=== PATIENT | male | born 1965 | race Caucasian/White ===

== ENCOUNTER 2020-10-14 09:15 | Inpatient (IN) | payer OTHER ==
[~2020-10-14] VITALS: Ht 188 cm; Wt 125.0 kg
--- NOTE | 2020-10-14 09:28 | NUR ---
patient to ct.
[2020-10-14 09:43] LABS: BASOPHILS # (AUTO) 0.1 X10'3 (0-0.2); BASOPHILS % (AUTO) 1.3 % (0-1); EOSINOPHILS # (AUTO) 0.1 X10'3 (0-0.9); EOSINOPHILS % (AUTO) 0.6 % (0-6); HEMATOCRIT 46.7 % (42.0-52.0); HEMOGLOBIN 15.9 g/dl (14.0-17.9); LYMPHOCYTES # (AUTO) 2.1 X10'3 (1.1-4.8); LYMPHOCYTES % (AUTO) 23.9 % (21-51); MEAN CORPUSCULAR HEMOGLOBIN 31.6 PG (27.0-31.0); MEAN CORPUSCULAR HGB CONC 34.1 g/dL (33.0-36.5); MEAN CORPUSCULAR VOLUME 92.9 FL (78-98); MEAN PLATELET VOLUME 10.9 FL (7.4-10.4); MONOCYTES # (AUTO) 0.5 X10'3 (0-0.9); MONOCYTES % (AUTO) 6.3 % (2-12); NEUTROPHILS # (AUTO) 5.9 X10'3 (1.8-7.7); NEUTROPHILS % (AUTO) 67.9 % (42-75); PLATELET COUNT 197 X10'3 (140-440); RED BLOOD COUNT 5.02 X10'6 (4.70-6.10); RED CELL DISTRIBUTION WIDTH 12.8 % (11.5-14.5); WHITE BLOOD COUNT 8.6 X10'3 (4.5-11.0)
[2020-10-14 09:53] LABS: PARTIAL THROMBOPLASTIN TIME 25 SECONDS (22-32)
[2020-10-14 09:56] LABS: ALANINE AMINOTRANSFERASE 24 U/L (12-78); ALBUMIN 4.1 G/DL (3.4-5.0); ALKALINE PHOSPHATASE 78 IU/L (46-116); ANION GAP 11 (8-16); ASPARTATE AMINO TRANSFERASE 23 U/L (10-37); BILIRUBIN,TOTAL 0.8 MG/DL (0.1-1.0); BLOOD UREA NITROGEN 17 MG/DL (7-18); BUN/CREATININE RATIO 14.7 (5.4-32.0); CALCIUM 8.7 MG/DL (8.5-10.1); CHLORIDE 98 MMOL/L (99-107); CREATININE 1.16 MG/DL (0.60-1.10); GLUCOSE 326 MG/DL (70-104); POTASSIUM 3.8 MMOL/L (3.5-5.1); SODIUM 135 MMOL/L (135-145); TOTAL CARBON DIOXIDE 26.1 MMOL/L (24-32); TOTAL PROTEIN 8.1 G/DL (6.4-8.2); eGFR 66 ML/MIN
[2020-10-14 10:00] LABS: TROPONIN I < 0.04 NG/ML (0.0-0.05)
[2020-10-14] MEDS ORDERED: iohexol 350MG/ML 100ml bottle IV ONE (10:12)
--- NOTE | 2020-10-14 10:22 | NUR ---
pt to CT
[2020-10-14] MEDS ORDERED: aspirin 325mg tablet PO ONE (10:50)
[2020-10-14] MEDS ORDERED: NO HOME MEDS (12:27)
[2020-10-14] MEDS ORDERED: potassium CL 10mEq/100ml bag 100 ML IV PRN ×2 (12:55)
[2020-10-14] MEDS ORDERED: HYDROcodone/acetaminophen 5mg/325mg tablet PO PRN (12:55)
[2020-10-14] MEDS ORDERED: diphenhydrAMINE 25mg capsule PO PRN (12:55)
[2020-10-14] MEDS ORDERED: bisacodyl 10mg suppository rectal RC PRN (12:55)
[2020-10-14] MEDS ORDERED: magnesium Cl slow-release 64mg tablet PO PRN (12:55)
[2020-10-14] MEDS ORDERED: morphine 2 MG/ML inj. syringe IV PRN ×2 (12:55)
[2020-10-14] MEDS ORDERED: magnesium hydroxide 30ml (MOM) UD suspension PO PRN (12:55)
[2020-10-14] MEDS ORDERED: HYDROcodone/acetaminophen 10/325mg tab PO PRN (12:55)
[2020-10-14] MEDS ORDERED: magnesium 4gm in 100ml NS 100 ML IV PRN (12:55)
[2020-10-14] MEDS ORDERED: potassium Cl 20 mEq SR tablet PO PRN ×2 (12:55)
[2020-10-14] MEDS ORDERED: magnesium 2GM in 50ml NS 50 ML IV PRN (12:55)
[2020-10-14] MEDS ORDERED: ondansetron/PF 4mg/2ml inj IV PRN (12:55)
[2020-10-14] MEDS ORDERED: mag hydrox/Alum hydrox/simeth 30ml oral suspension PO PRN (12:55)
[2020-10-14] MEDS ORDERED: acetaminophen 650mg rectal suppository RC PRN (12:55)
[2020-10-14] MEDS ORDERED: acetaminophen 325mg tablet PO PRN ×2 (12:55)
[2020-10-14 13:00] VITALS: BP 211/111
--- NOTE | 2020-10-14 13:27 | NUR ---
architectural technician at bedside.
[2020-10-14 14:00] LABS: HEMOGLOBIN A1C 9.9 % (4.5-6.2)
[2020-10-14] MEDS: normal saline 1000ml 1,000 ML IV SCH (14:07)
[2020-10-14 15:02] LABS: CHOL/HDL RATIO 3.9 (0.00-4.99); CHOLESTEROL 238 MG/DL (0-200); HDL CHOLESTEROL 61 MG/DL (35-60); LDL CHOLESTEROL 145 MG/DL (50-100); TRIGLYCERIDES 185 MG/DL (20-135)
--- NOTE | 2020-10-14 17:49 | NUR ---
PAGER ID: [phone] MESSAGE: [id number] Pooja Juan- A1C is 9.9 Blood sugar 236, can we order DM portocol? Niyah [id number]
[2020-10-14] MEDS ORDERED: dextrose ORAL solution 15 GM/59 ML bottle PO PRN ×2 (17:50)
[2020-10-14] MEDS ORDERED: glucagon, human recombinant 1mg kit SUBCUT PRN (17:50)
[2020-10-14] MEDS ORDERED: dextrose 50%-water 50ml dispensing syringe IV PRN ×2 (17:50)
[2020-10-14] MEDS ORDERED: MESSAGE TO PHARMACY PO ONE (17:50)
[2020-10-14 18:00] VITALS: BP 209/114
--- NOTE | 2020-10-14 18:35 | NUR ---
Problems reprioritized. Patient report given, questions answered & plan of care reviewed with Flor MAN.
--- NOTE | 2020-10-14 18:39 | NUR ---
Patient in room [facility] 4012. I have received report from Niyah MAN and had the opportunity to ask questions and assume patient care.
[2020-10-14] MEDS: K and/or MAG REPLACEMENT MC SCH (19:35)
[2020-10-14] MEDS: heparin, porcine 5000 units/ml vial SQ SCH (19:36)
[2020-10-14] MEDS: insulin Lispro (HumaLOG) vial - multi-dose SQ SCH (19:38)
[2020-10-14 20:00] VITALS: BP_SYST 172; BP_SYST 174; BP_SYST 183; BP_DIAS 103; BP_DIAS 92; BP_DIAS 95
[2020-10-14] MEDS ORDERED: atorvastatin 20mg tablet PO ONE (20:00)
[2020-10-14] MEDS ORDERED: atorvastatin 10mg tablet PO ONE (20:00)
[2020-10-14 20:24] LABS: CLARITY,URINE CLEAR (Clear); COLOR,URINE YELLOW (Yellow); GLUCOSE, URINE >=1000 mg/dl (Neg); KETONES,URINE TRACE mg/dl (Neg); LEUKOCYTE ESTERASE ,URINE NEGATIVE (Neg); NITRITES, URINE NEGATIVE (Neg); OCCULT BLOOD,URINE TRACE-INTACT (Neg); PROTEIN,URINE 100 mg/dl (Neg); UROBILINOGEN,URINE 0.2 E.U/dL (0.2-1.0)
[2020-10-14 20:29] LABS: UA COLLECTION TYPE CLN CATCH MIDSTREAM
[2020-10-14 20:30] LABS: BACTERIA,URINE NONE SEEN /HPF (Neg); MUCUS STRANDS NONE SEEN /LPF (Neg); RBC,URINE 0-2 /HPF (0-2); SQUAMOUS EPITHELIAL CELL,UR FEW /LPF (FEW); WBC,URINE 0-4 /HPF (0-4)
[2020-10-14] MEDS: insulin glargine (Lantus) pen - multi-dose SQ SCH (21:43)
[2020-10-14 22:00] VITALS: BP 174/92
[2020-10-15] VITALS (9 sets, daily range): BP systolic 143–171; BP diastolic 85–99
[2020-10-15] MEDS: normal saline 1000ml 1,000 ML IV SCH ×2 (02:15→15:35)
[2020-10-15 06:29] LABS: BASOPHILS # (AUTO) 0.1 X10'3 (0-0.2); BASOPHILS % (AUTO) 1.1 % (0-1); EOSINOPHILS # (AUTO) 0.1 X10'3 (0-0.9); EOSINOPHILS % (AUTO) 1.7 % (0-6); HEMATOCRIT 41.3 % (42.0-52.0); HEMOGLOBIN 13.9 g/dl (14.0-17.9); LYMPHOCYTES # (AUTO) 2.3 X10'3 (1.1-4.8); LYMPHOCYTES % (AUTO) 35.6 % (21-51); MEAN CORPUSCULAR HEMOGLOBIN 31.3 PG (27.0-31.0); MEAN CORPUSCULAR HGB CONC 33.6 g/dL (33.0-36.5); MEAN CORPUSCULAR VOLUME 93.1 FL (78-98); MEAN PLATELET VOLUME 10.4 FL (7.4-10.4); MONOCYTES # (AUTO) 0.4 X10'3 (0-0.9); MONOCYTES % (AUTO) 6.4 % (2-12); NEUTROPHILS # (AUTO) 3.6 X10'3 (1.8-7.7); NEUTROPHILS % (AUTO) 55.2 % (42-75); PLATELET COUNT 160 X10'3 (140-440); RED BLOOD COUNT 4.44 X10'6 (4.70-6.10); RED CELL DISTRIBUTION WIDTH 12.9 % (11.5-14.5); WHITE BLOOD COUNT 6.6 X10'3 (4.5-11.0)
--- NOTE | 2020-10-15 06:36 | NUR ---
Problems reprioritized. Patient report given, questions answered & plan of care reviewed with Niyah MAN.
[2020-10-15 06:54] LABS: ALANINE AMINOTRANSFERASE 23 U/L (12-78); ALBUMIN 3.2 G/DL (3.4-5.0); ALKALINE PHOSPHATASE 60 IU/L (46-116); ANION GAP 9 (8-16); ASPARTATE AMINO TRANSFERASE 13 U/L (10-37); BILIRUBIN,TOTAL 0.9 MG/DL (0.1-1.0); BLOOD UREA NITROGEN 14 MG/DL (7-18); BUN/CREATININE RATIO 15.4 (5.4-32.0); CALCIUM 8.5 MG/DL (8.5-10.1); CHLORIDE 105 MMOL/L (99-107); CHOL/HDL RATIO 4.1 (0.00-4.99); CHOLESTEROL 189 MG/DL (0-200); CREATININE 0.91 MG/DL (0.60-1.10); GLUCOSE 216 MG/DL (70-104); HDL CHOLESTEROL 46 MG/DL (35-60); LDL CHOLESTEROL 117 MG/DL (50-100); MAGNESIUM 1.8 MG/DL (1.5-2.4); PHOSPHORUS 3.8 MG/DL (2.3-4.5); POTASSIUM 3.6 MMOL/L (3.5-5.1); SODIUM 141 MMOL/L (135-145); TOTAL CARBON DIOXIDE 26.9 MMOL/L (24-32); TOTAL PROTEIN 6.3 G/DL (6.4-8.2); TRIGLYCERIDES 208 MG/DL (20-135); eGFR 87 ML/MIN
[2020-10-15] MEDS: heparin, porcine 5000 units/ml vial SQ SCH ×2 (07:35→19:09)
[2020-10-15] MEDS: aspirin 81mg tablet.DR PO SCH (07:35)
[2020-10-15] MEDS: K and/or MAG REPLACEMENT MC SCH ×2 (07:39→20:00)
[2020-10-15] MEDS ORDERED: atorvastatin 10mg tablet PO SCH ×2 (08:00)
[2020-10-15] MEDS: insulin Lispro (HumaLOG) vial - multi-dose SQ SCH ×3 (08:49→19:06)
[2020-10-15] MEDS ORDERED: FLU VACC QS2020-21(6MOS UP)/PF 60 MCG/0.5 ML SYRINGE IMVAC ONE (10:00)
--- NOTE | 2020-10-15 14:47 | NUR ---
DM consult: Pt with T2DM, current A1c is 9.9%. Per H&P pt not on any DM medications though needs to be on oral hypoglycemic agents and will need diabetic supplies and follow up with MDs at discharge. Pt seen at bedside for written and verbal DM education. Pt states he used to see an MD for DM management however they moved and he never got a new physician. Pt states because of that once his DM med rx ran out he never got a refill. Pt states it has been years since he last had a DM rx and he stopped checking his BG levels at that time though reports he still has a glucometer. Pt denies following any special diet at home and reports he consumes roughly 3-4 meals a day and mostly eats fast food. Pt unsure of consequences that can occur with poorly controlled diabetes, RD educated pt. RD assisted pt in coming up with small achievable goals for diet modification to better manage diabetes. Pt states his A1c was previously around 12% roughly five years ago and was able to get it down around 5% with medication assistance. RD encouraged pt to f/u with an MD following discharge and to d/w inpatient RN and MD regarding medication rx upon discharge. All of patient's questions were answered at this time. RD contact information provided. Pt endorses a good appetite and states he isn't getting full from meals. Pt agrees to double protein TID for satiety, d/w dietary. Pt denies food allergies or difficulty chewing/swallowing. Pt denies constipation/diarrhea though reports LBM was 11/13 in the morning. Pt denies nutrition intervention at this time. Will continue to follow. Addendum: 10/15/20 at [address] Amended: Links added.
--- NOTE | 2020-10-15 18:33 | NUR ---
Problems reprioritized. Patient report given, questions answered & plan of care reviewed with Ting MAN.
[2020-10-15] MEDS: insulin glargine (Lantus) pen - multi-dose SQ SCH (20:58)
[2020-10-15] MEDS ORDERED: atorvastatin 20mg tablet PO SCH (21:00)
[2020-10-16] MEDS: normal saline 1000ml 1,000 ML IV SCH (04:55)
[2020-10-16 06:00] VITALS: BP 161/101
[2020-10-16 06:12] LABS: ALANINE AMINOTRANSFERASE 24 U/L (12-78); ALBUMIN 3.3 G/DL (3.4-5.0); ALKALINE PHOSPHATASE 63 IU/L (46-116); ANION GAP 8 (8-16); ASPARTATE AMINO TRANSFERASE 16 U/L (10-37); BILIRUBIN,TOTAL 0.8 MG/DL (0.1-1.0); BLOOD UREA NITROGEN 12 MG/DL (7-18); BUN/CREATININE RATIO 12.4 (5.4-32.0); CALCIUM 8.5 MG/DL (8.5-10.1); CHLORIDE 107 MMOL/L (99-107); CREATININE 0.97 MG/DL (0.60-1.10); GLUCOSE 161 MG/DL (70-104); MAGNESIUM 1.8 MG/DL (1.5-2.4); PHOSPHORUS 3.5 MG/DL (2.3-4.5); POTASSIUM 3.6 MMOL/L (3.5-5.1); SODIUM 143 MMOL/L (135-145); TOTAL CARBON DIOXIDE 27.9 MMOL/L (24-32); TOTAL PROTEIN 6.5 G/DL (6.4-8.2); eGFR 81 ML/MIN
--- NOTE | 2020-10-16 06:20 | NUR ---
received report from kristi javier
--- NOTE | 2020-10-16 06:21 | NUR ---
Problems reprioritized. Patient report given, questions answered & plan of care reviewed with DONOVAN Olivera.
[2020-10-16 06:24] LABS: BASOPHILS # (AUTO) 0.1 X10'3 (0-0.2); BASOPHILS % (AUTO) 0.7 % (0-1); EOSINOPHILS # (AUTO) 0.1 X10'3 (0-0.9); EOSINOPHILS % (AUTO) 1.4 % (0-6); HEMATOCRIT 41.6 % (42.0-52.0); HEMOGLOBIN 14.3 g/dl (14.0-17.9); LYMPHOCYTES # (AUTO) 3.1 X10'3 (1.1-4.8); LYMPHOCYTES % (AUTO) 40.8 % (21-51); MEAN CORPUSCULAR HGB CONC 34.5 g/dL (33.0-36.5); MEAN PLATELET VOLUME 10.6 FL (7.4-10.4); MONOCYTES # (AUTO) 0.5 X10'3 (0-0.9); NEUTROPHILS # (AUTO) 3.9 X10'3 (1.8-7.7); NEUTROPHILS % (AUTO) 51.1 % (42-75); PLATELET COUNT 175 X10'3 (140-440); RED BLOOD COUNT 4.47 X10'6 (4.70-6.10); RED CELL DISTRIBUTION WIDTH 12.4 % (11.5-14.5); WHITE BLOOD COUNT 7.7 X10'3 (4.5-11.0)
[2020-10-16] MEDS: K and/or MAG REPLACEMENT MC SCH (08:00)
[2020-10-16] MEDS: insulin Lispro (HumaLOG) vial - multi-dose SQ SCH (08:49)
[2020-10-16] MEDS: aspirin 81mg tablet.DR PO SCH (08:50)
[2020-10-16] MEDS: heparin, porcine 5000 units/ml vial SQ SCH (08:51)
[2020-10-16 10:00] VITALS: BP 175/94
--- NOTE | 2020-10-16 13:00 | NUR ---
since pt bg was 99 at lunch pt does not want to take an insulin at this time, continue to educate and to monitor pt
[2020-10-16] MEDS ORDERED: CLOP75TA15 PO (13:28)
[2020-10-16] MEDS ORDERED: LISI-604 PO (13:28)
[2020-10-16] MEDS ORDERED: ASPI-1071 PO (13:28)
[2020-10-16] MEDS ORDERED: ATOR20TA66 PO (13:28)
[2020-10-16] MEDS ORDERED: GLYB2.5T4 PO (13:28)
--- NOTE | 2020-10-16 14:52 | NUR ---
pt d/c with instructions, understanding of instructions and w/all belongings in wheelchair accompanied by nursing staff to private vehicle to go home and f/u w/pcp
[2020-10-16] MEDS ORDERED: lisinopril 10 MG tablet PO ONE (15:15)
== END 2020-10-16 15:00 | disposition home health service (06) | DRG 65 ==
LOC: ER 09:15 → ED HOLD 12:55 → UNDOADMIN 12:59 → ED HOLD 12:59 → ORTHO 4S 14:50
PROVIDERS: ADMIT Family Medicine; ATTEND Family Medicine
PROC: BW281ZZ Computerized Tomography (CT Scan) of Head using Low Osmolar Contrast (ICD-10-PCS; principal; 2020-10-14)
PROC: 3E0234Z Introduction of Serum, Toxoid and Vaccine into Muscle, Percutaneous Approach (ICD-10-PCS; 2020-10-15)
DX: I63.9 Cerebral infarction, unspecified (principal); G81.94 Hemiplegia, unspecified affecting left nondominant side; E11.65 Type 2 diabetes mellitus with hyperglycemia; E66.9 Obesity, unspecified; E78.5 Hyperlipidemia, unspecified; I10 Essential (primary) hypertension; Z79.82 Long term (current) use of aspirin; Z79.899 Other long term (current) drug therapy; Z82.49 Family history of ischemic heart disease and other diseases of the circulatory system; Z83.3 Family history of diabetes mellitus; Z23 Encounter for immunization; Z68.35 Body mass index [BMI] 35.0-35.9, adult
CPT/HCPCS: 36415; 70450; 70496; 70498; 70551; 71045; 80053; 80061; 81001; 82948; 83036; 83735; 84100; 84484; 85025; 85610; 85651; 85730; 87081; 93005; 93306; 97110; 97112; 97116; 97161; 97530; G0378; J1644; J1815; J7030; Q2039; Q9967